=== PATIENT | female | born 1950 | race Caucasian/White ===

== ENCOUNTER 2018-02-11 05:55 | Inpatient (IN) ==
[2018-02-11] MEDS ORDERED: ASPIRIN 325 MG TABLET PO STA (06:24)
[2018-02-11 07:01] LABS: Basophils % 0.5 % (0.0-0.8); Eosinophils # 0.1 10*3/uL (0.0-0.87); Eosinophils % 1.7 % (0.00-10.9); Hematocrit 43.1 VOL% (35.7-47.0); Hemoglobin 14.7 GM/DL (12.0-16.0); Immature Granulocytes % 0.3 %; Immature Granulocytes Absolute 0.02 #; Lymphocytes # 2.5 10*3/uL (1.4-4.0); Lymphocytes % 33.5 % (21.3-54.2); Mean Corpuscular HGB Conc 34.1 GM/DL (32-36); Mean Corpuscular Hemoglobin 32 PG (27-34); Mean Corpuscular Volume 93.3 FL (87-102); Mean Platelet Volume 10.7 FL (9.6-12.0); Monocytes # 0.6 10*3/uL (0.11-0.8); Monocytes % 7.3 % (1.7-12.7); Neutrophils # 4.3 10*3/uL (1.4-7.4); Neutrophils % 56.7 % (38.7-73.9); Platelet Count 142 T/CUMM (130-400); Red Blood Count 4.62 MC/CUMM (3.8-5.5); Red Cell Distribution Width 12.6 % (9.3-17.3); White Blood Count 7.6 T/CUMM (4-12)
[2018-02-11 07:20] LABS: Hypochromasia 1+
[2018-02-11 07:30] LABS: Albumin 3.8 G/DL (3.4-5.0); Bilirubin,Total 0.4 MG/DL (0.2-1.0); Calcium 8.9 MG/DL (8.5-10.1); Osmolality,Calculated 283.3 MOS/KG (273-304); Potassium 3.6 MMOL/L (3.5-5.1); Total Protein 7.4 G/DL (6.4-8.3)
[2018-02-11] MEDS ORDERED: GLUCAGON 1 MG VIAL IM PRN (10:20)
[2018-02-11] MEDS ORDERED: DEXTROSE 50% 25 GM/50 ML VIAL IV PRN (10:20)
[2018-02-11] MEDS ORDERED: ACETAMINOPHEN 325 MG TABLET PO PRN (10:20)
[2018-02-11] MEDS ORDERED: ONDANSETRON 4 MG/2 ML VIAL IV PRN (10:20)
[2018-02-11 10:41] LABS: Risk Ratio 3.12; VLDL CHOLESTEROL 38.4 MG/DL
[2018-02-11] MEDS: INSULIN REGULAR 100 UNIT/ML SUBCUT SCH ×3 (12:12→21:08)
[2018-02-12] MEDS ORDERED: GEMFIBROZIL 600 MG TABLET PO SCH (07:30)
[2018-02-12] MEDS ORDERED: ATORVASTATIN 10 MG TABLET PO SCH (09:00)
[2018-02-12] MEDS ORDERED: BISOPROLOL/HCTZ 5-6.25 MG TABLET PO SCH (09:00)
[2018-02-12] MEDS ORDERED: MELOXICAM 7.5 MG TABLET PO SCH (09:00)
[2018-02-12] MEDS ORDERED: ESTRADIOL 1 MG TABLET PO SCH (09:00)
[2018-02-12] MEDS ORDERED: metFORMIN 500 MG TABLET PO SCH (09:00)
[2018-02-12] MEDS ORDERED: PANTOPRAZOLE 40 MG TABLET PO SCH (09:00)
[2018-02-12] MEDS: INSULIN REGULAR 100 UNIT/ML SUBCUT SCH ×2 (09:43→12:45)
[2018-02-12 11:19] VITALS: BP 138/72
== END 2018-02-12 15:22 | disposition home or self-care (01) | DRG 392 ==
LOC: N.ED 05:55 → N.EDINP 09:15 → N.TELEN 10:23
PROVIDERS: ADMIT Internal Medicine; ATTEND Internal Medicine

== ENCOUNTER 2022-06-08 08:59 | Inpatient (IN) ==
[2022-06-08 09:58] LABS: Basophils # 0.1 10*3/uL (0.0-0.2); Basophils % 0.9 % (0.0-0.8); Eosinophils # 0.1 10*3/uL (0.0-0.87); Eosinophils % 1.5 % (0.00-10.9); Hematocrit 38.9 VOL% (35.7-47.0); Immature Granulocytes % 0.4 %; Immature Granulocytes Absolute 0.03 #; Lymphocytes # 1.9 10*3/uL (1.4-4.0); Lymphocytes % 22.5 % (21.3-54.2); Mean Corpuscular HGB Conc 33.4 GM/DL (32-36); Mean Corpuscular Volume 94.2 FL (87-102); Mean Platelet Volume 9.2 FL (9.6-12.0); Monocytes # 0.5 10*3/uL (0.11-0.8); Monocytes % 6.3 % (1.7-12.7); Neutrophils % 68.4 % (38.7-73.9); Platelet Count 244 T/CUMM (130-400); Red Blood Count 4.13 MC/CUMM (3.8-5.5); Red Cell Distribution Width 14.4 % (9.3-17.3); White Blood Count 8.5 T/CUMM (4-12)
[2022-06-08 10:09] LABS: INR 0.9; PT Patient Result 10.3 SECS (10.1-12.1)
[2022-06-08 10:10] LABS: Mucus,Urine Occasional /LPF (Occasional); RBC,Urine 14 /HPF (0-4); Squamous Epithelial Cell,Urine Many /HPF (0-10)
[2022-06-08 10:11] LABS: Bilirubin,Urine Negative (Negative); Blood, Urine Moderate mg/dL (Negative); Glucose,Urine (UA) 100 mg/dL (Negative); Ketones,Urine Negative (Negative); Nitrite,Urine Negative (Negative); Protein,Urine >=300 mg/dL (Negative); Urine Appearance Slightly Cloudy (Clear); Urine Color Yellow (Yellow); Urine Specific Gravity > 1.030 (1.001-1.035); Urine Urobilinogen 0.2 eU/dL (<2.0); Urine pH 5.5 (4.5-8.0)
[2022-06-08 10:15] LABS: Alanine Aminotransferase 16 U/L (13-56); Albumin 1.5 G/DL (3.4-5.0); Alkaline Phosphatase 83 U/L (45-117); Aspartate Amino Transferase 30 U/L (0-37); Bilirubin,Total < 0.39 MG/DL (0.20-1.00); Blood Urea Nitrogen 23 MG/DL (7-18); Calcium 8.4 MG/DL (8.5-10.1); Carbon Dioxide 23 MMOL/L (21-32); Chloride 115 MMOL/L (98-107); Glucose 123 MG/DL (74-106); Osmolality,Calculated 294.6 MOS/KG (273-304); Potassium 3.5 MMOL/L (3.5-5.1); Sodium 146 MMOL/L (136-145); Total Protein 4.4 G/DL (6.4-8.2)
[2022-06-08] MEDS ORDERED: FUROSEMIDE 40 MG/4 ML VIAL IV STA (12:08)
[2022-06-08] MEDS: HEPARIN DRIP 25,000 UNITS/500 ML PREMIX IV SCH (12:55)
[2022-06-08] MEDS ORDERED: ONDANSETRON 4 MG/2 ML VIAL IV PRN (13:23)
[2022-06-08] MEDS ORDERED: DEXTROSE 10% 250 ML BAG IV PRN (13:23)
[2022-06-08] MEDS ORDERED: GLUCAGON 1 MG VIAL IM PRN (13:23)
[2022-06-08] MEDS: INSULIN REGULAR 100 UNIT/ML SUBCUT SCH ×2 (15:36→20:00)
[2022-06-08] MEDS: amLODIPine 10 MG TABLET PO SCH (15:36)
[2022-06-08] MEDS: gemfibroziL 600 MG TABLET PO SCH (15:47)
[2022-06-08 16:33] LABS: Hepatitis B Core IgM Quant < 0.05 Index; Hepatitis B Surface Ag Quant 0.16 Index; Hepatitis B Surface Ag Result Non-Reactive (NonReactive); Hepatitis C Virus Ab Quant < 0.02 Index; Hepatitis C Virus Ab Result Non-Reactive (NonReactive)
[2022-06-08] MEDS: ATORVASTATIN 10 MG TABLET PO SCH (20:33)
[2022-06-08] MEDS: guaiFENesin/DM ER 600-30 MG TABLET PO SCH (20:33)
[2022-06-08] MEDS ORDERED: ENOXAPARIN 40 MG/0.4 ML SYRINGE SUBCUT SCH (21:00)
[2022-06-09 01:51] LABS: Basophils # 0.1 10*3/uL (0.0-0.2); Basophils % 0.7 % (0.0-0.8); Eosinophils # 0.2 10*3/uL (0.0-0.87); Eosinophils % 2.1 % (0.00-10.9); Hematocrit 30.5 VOL% (35.7-47.0); Hemoglobin 10.4 GM/DL (12.0-16.0); Immature Granulocytes % 0.3 %; Immature Granulocytes Absolute 0.02 #; Lymphocytes % 42.2 % (21.3-54.2); Mean Corpuscular HGB Conc 34.1 GM/DL (32-36); Mean Corpuscular Volume 93.8 FL (87-102); Mean Platelet Volume 9.6 FL (9.6-12.0); Monocytes # 0.6 10*3/uL (0.11-0.8); Monocytes % 8.3 % (1.7-12.7); Neutrophils % 46.4 % (38.7-73.9); Platelet Count 211 T/CUMM (130-400); Red Blood Count 3.25 MC/CUMM (3.8-5.5); Red Cell Distribution Width 14.4 % (9.3-17.3); White Blood Count 7.1 T/CUMM (4-12)
[2022-06-09 02:14] LABS: Alanine Aminotransferase 14 U/L (13-56); Albumin 1.2 G/DL (3.4-5.0); Alkaline Phosphatase 59 U/L (45-117); Aspartate Amino Transferase 24 U/L (0-37); Bilirubin,Total < 0.39 MG/DL (0.20-1.00); Blood Urea Nitrogen 25 MG/DL (7-18); Calcium 7.7 MG/DL (8.5-10.1); Carbon Dioxide 23 MMOL/L (21-32); Chloride 114 MMOL/L (98-107); Glucose 94 MG/DL (74-106); Osmolality,Calculated 289.8 MOS/KG (273-304); Potassium 3.3 MMOL/L (3.5-5.1); Sodium 144 MMOL/L (136-145)
[2022-06-09 02:16] LABS: Uric Acid 5.5 MG/DL (2.6-6.0)
[2022-06-09 02:23] LABS: Risk Ratio 3.95; Thyroid Stimulating Hormone 6.59 uIU/ml (0.358-3.74); VLDL Cholesterol 38.6 MG/DL
[2022-06-09 02:38] LABS: Immunoglobulin A 219 MG/DL (70-400); Immunoglobulin G 165 MG/DL (700-1600); Immunoglobulin M 28 MG/DL (40-230)
[2022-06-09] MEDS: INSULIN REGULAR 100 UNIT/ML SUBCUT SCH ×4 (08:05→22:11)
[2022-06-09] MEDS ORDERED: ESTRADIOL 1 MG TABLET PO SCH (09:00)
[2022-06-09] MEDS ORDERED: DIAZEPAM 5 MG TABLET PO ONE (09:50)
[2022-06-09] MEDS: FUROSEMIDE 40 MG/4 ML VIAL IV SCH ×2 (10:24→16:31)
[2022-06-09] MEDS: SODIUM CHLORIDE 0.45% 1,000 ML IV SCH (12:08)
[2022-06-09 13:51] LABS: Kappa Free Light Chain 4.25 mg/dL; Lambda Free Light Chain 2.87 mg/dL
[2022-06-09] MEDS: amLODIPine 10 MG TABLET PO SCH (13:58)
[2022-06-09] MEDS: PANTOPRAZOLE 40 MG TABLET PO SCH (13:58)
[2022-06-09] MEDS: gemfibroziL 600 MG TABLET PO SCH ×2 (13:58→16:31)
[2022-06-09] MEDS: LEVOTHYROXINE 25 MCG TABLET PO SCH (13:58)
[2022-06-09] MEDS: guaiFENesin/DM ER 600-30 MG TABLET PO SCH ×2 (13:58→22:12)
[2022-06-09] MEDS: BISOPROLOL/HCTZ 5-6.25 MG TABLET PO SCH (13:59)
[2022-06-09] MEDS: HEPARIN DRIP 25,000 UNITS/500 ML PREMIX IV SCH ×2 (14:13→16:09)
[2022-06-09] MEDS: POTASSIUM BICARB EFFERVESCENT 20 MEQ TAB.EFF PO SCH (16:38)
[2022-06-09 19:49] LABS: Total Protein 24 Hr Ur Result 1365 MG/24HR (0-149.1); Total Volume,Urine 250 ML (400-2000)
[2022-06-09 19:52] LABS: Protein/Creatinine Ratio,Urine 4.9 RATIO
[2022-06-09 22:09] LABS: PT Patient Result 10.6 SECS (10.1-12.1); Partial Thromboplastin Time 47.8 SECS (23.7-32.9)
[2022-06-09] MEDS: ATORVASTATIN 10 MG TABLET PO SCH (22:12)
[2022-06-10 03:12] LABS: Basophils % 0.6 % (0.0-0.8); Eosinophils # 0.2 10*3/uL (0.0-0.87); Eosinophils % 3.4 % (0.00-10.9); Hematocrit 28.8 VOL% (35.7-47.0); Hemoglobin 9.6 GM/DL (12.0-16.0); Immature Granulocytes % 0.2 %; Immature Granulocytes Absolute 0.01 #; Lymphocytes # 3.3 10*3/uL (1.4-4.0); Lymphocytes % 50.2 % (21.3-54.2); Mean Corpuscular HGB Conc 33.3 GM/DL (32-36); Mean Corpuscular Volume 93.5 FL (87-102); Mean Platelet Volume 9.3 FL (9.6-12.0); Monocytes # 0.6 10*3/uL (0.11-0.8); Monocytes % 9.2 % (1.7-12.7); Neutrophils % 36.4 % (38.7-73.9); Platelet Count 211 T/CUMM (130-400); Red Blood Count 3.08 MC/CUMM (3.8-5.5); Red Cell Distribution Width 14.4 % (9.3-17.3); White Blood Count 6.5 T/CUMM (4-12)
[2022-06-10 03:26] LABS: PT Patient Result 10.7 SECS (10.1-12.1); Partial Thromboplastin Time 82.9 SECS (23.7-32.9)
[2022-06-10 03:32] LABS: Alanine Aminotransferase 11 U/L (13-56); Albumin 1.1 G/DL (3.4-5.0); Alkaline Phosphatase 57 U/L (45-117); Aspartate Amino Transferase 22 U/L (0-37); Bilirubin,Total < 0.39 MG/DL (0.20-1.00); Blood Urea Nitrogen 22 MG/DL (7-18); Calcium 7.7 MG/DL (8.5-10.1); Carbon Dioxide 23 MMOL/L (21-32); Chloride 113 MMOL/L (98-107); Glucose 105 MG/DL (74-106); Osmolality,Calculated 283.3 MOS/KG (273-304); Potassium 3.1 MMOL/L (3.5-5.1); Sodium 141 MMOL/L (136-145); Total Protein 3.7 G/DL (6.4-8.2)
[2022-06-10 03:44] LABS: Eosinophils 4 % (0-10); Lymphocytes 52 % (20-55); Total Cells Counted 100
[2022-06-10 03:48] LABS: Platelet Estimate Normal
[2022-06-10 03:50] LABS: Atypical Lymphocytes Few; Smudge Cells Few
[2022-06-10] MEDS: LEVOTHYROXINE 25 MCG TABLET PO SCH (06:32)
[2022-06-10] MEDS: gemfibroziL 600 MG TABLET PO SCH ×2 (09:16→16:34)
[2022-06-10] MEDS: guaiFENesin/DM ER 600-30 MG TABLET PO SCH ×2 (09:16→21:32)
[2022-06-10] MEDS: amLODIPine 10 MG TABLET PO SCH (09:17)
[2022-06-10] MEDS: POTASSIUM BICARB EFFERVESCENT 20 MEQ TAB.EFF PO SCH (09:17)
[2022-06-10] MEDS: PANTOPRAZOLE 40 MG TABLET PO SCH (09:17)
[2022-06-10] MEDS: BISOPROLOL/HCTZ 5-6.25 MG TABLET PO SCH (09:21)
[2022-06-10 09:49] LABS: PT Patient Result 10.8 SECS (10.1-12.1)
[2022-06-10 09:54] LABS: Partial Thromboplastin Time 102.4 SECS (23.7-32.9)
[2022-06-10] MEDS: POTASSIUM CHLORIDE 20 MEQ TABLET PO SCH ×2 (10:18→21:32)
[2022-06-10] MEDS: FUROSEMIDE 40 MG/4 ML VIAL IV SCH ×2 (10:20→16:34)
[2022-06-10] MEDS: INSULIN REGULAR 100 UNIT/ML SUBCUT SCH (13:39)
[2022-06-10 13:41] LABS: Antinuclear Ab, S 0.7 U
[2022-06-10] MEDS: SODIUM CHLORIDE 0.45% 1,000 ML IV SCH (14:42)
[2022-06-10] MEDS: HEPARIN DRIP 25,000 UNITS/500 ML PREMIX IV SCH (15:48)
[2022-06-10] MEDS: ATORVASTATIN 10 MG TABLET PO SCH (21:32)
[2022-06-10] MEDS: APIXABAN 5 MG TABLET PO SCH (21:33)
[2022-06-10] MEDS: diphenhydrAMINE CAP 25 MG CAPSULE PO PRN (21:33)
[2022-06-11 04:58] LABS: Basophils # 0.1 10*3/uL (0.0-0.2); Basophils % 1.1 % (0.0-0.8); Eosinophils # 0.2 10*3/uL (0.0-0.87); Eosinophils % 3.4 % (0.00-10.9); Hematocrit 29.1 VOL% (35.7-47.0); Hemoglobin 9.6 GM/DL (12.0-16.0); Immature Granulocytes % 0.2 %; Immature Granulocytes Absolute 0.01 #; Lymphocytes # 2.4 10*3/uL (1.4-4.0); Lymphocytes % 45.2 % (21.3-54.2); Mean Corpuscular Volume 94.2 FL (87-102); Mean Platelet Volume 9.3 FL (9.6-12.0); Monocytes # 0.6 10*3/uL (0.11-0.8); Monocytes % 11.2 % (1.7-12.7); Neutrophils % 38.9 % (38.7-73.9); Platelet Count 239 T/CUMM (130-400); Red Blood Count 3.09 MC/CUMM (3.8-5.5); Red Cell Distribution Width 14.4 % (9.3-17.3); White Blood Count 5.3 T/CUMM (4-12)
[2022-06-11 05:18] LABS: Alanine Aminotransferase 12 U/L (13-56); Albumin 1.1 G/DL (3.4-5.0); Alkaline Phosphatase 55 U/L (45-117); Aspartate Amino Transferase 24 U/L (0-37); Bilirubin,Total < 0.39 MG/DL (0.20-1.00); Blood Urea Nitrogen 18 MG/DL (7-18); Calcium 7.7 MG/DL (8.5-10.1); Carbon Dioxide 22 MMOL/L (21-32); Chloride 113 MMOL/L (98-107); Glucose 86 MG/DL (74-106); Osmolality,Calculated 281.3 MOS/KG (273-304); Potassium 3.5 MMOL/L (3.5-5.1); Sodium 141 MMOL/L (136-145); Total Protein 3.7 G/DL (6.4-8.2)
[2022-06-11] MEDS: LEVOTHYROXINE 25 MCG TABLET PO SCH (05:43)
[2022-06-11] MEDS: INSULIN REGULAR 100 UNIT/ML SUBCUT SCH ×6 (05:44→20:16)
[2022-06-11] MEDS: amLODIPine 10 MG TABLET PO SCH (08:58)
[2022-06-11] MEDS: APIXABAN 5 MG TABLET PO SCH ×2 (08:59→21:17)
[2022-06-11] MEDS: gemfibroziL 600 MG TABLET PO SCH ×2 (08:59→16:46)
[2022-06-11] MEDS: POTASSIUM CHLORIDE 20 MEQ TABLET PO SCH ×2 (08:59→21:18)
[2022-06-11] MEDS: guaiFENesin/DM ER 600-30 MG TABLET PO SCH ×2 (08:59→21:18)
[2022-06-11] MEDS: PANTOPRAZOLE 40 MG TABLET PO SCH (09:11)
[2022-06-11] MEDS: BISOPROLOL/HCTZ 5-6.25 MG TABLET PO SCH (09:11)
[2022-06-11] MEDS: POTASSIUM BICARB EFFERVESCENT 20 MEQ TAB.EFF PO SCH (09:43)
[2022-06-11] MEDS: FUROSEMIDE 40 MG/4 ML VIAL IV SCH (10:21)
[2022-06-11] MEDS: ATORVASTATIN 10 MG TABLET PO SCH (21:18)
[2022-06-12] MEDS: LEVOTHYROXINE 25 MCG TABLET PO SCH (05:34)
[2022-06-12 06:33] LABS: Immunoglobulin A (Chem) 219 MG/DL (70-400); Immunoglobulin G (Chem) 165 MG/DL (700-1600); Immunoglobulin M (Chem) 28 MG/DL (40-230)
[2022-06-12 07:11] LABS: Basophils % 0.7 % (0.0-0.8); Eosinophils # 0.2 10*3/uL (0.0-0.87); Eosinophils % 4.1 % (0.00-10.9); Hemoglobin 10.2 GM/DL (12.0-16.0); Immature Granulocytes % 0.5 %; Immature Granulocytes Absolute 0.02 #; Lymphocytes # 1.3 10*3/uL (1.4-4.0); Lymphocytes % 29.4 % (21.3-54.2); Mean Corpuscular HGB Conc 32.9 GM/DL (32-36); Mean Corpuscular Volume 95.1 FL (87-102); Mean Platelet Volume 9.8 FL (9.6-12.0); Monocytes # 0.5 10*3/uL (0.11-0.8); Monocytes % 12.3 % (1.7-12.7); Platelet Count 289 T/CUMM (130-400); Red Blood Count 3.26 MC/CUMM (3.8-5.5); Red Cell Distribution Width 14.3 % (9.3-17.3); White Blood Count 4.4 T/CUMM (4-12)
[2022-06-12 07:29] LABS: Alanine Aminotransferase 14 U/L (13-56); Albumin 1.1 G/DL (3.4-5.0); Alkaline Phosphatase 69 U/L (45-117); Aspartate Amino Transferase 24 U/L (0-37); Bilirubin,Total < 0.39 MG/DL (0.20-1.00); Blood Urea Nitrogen 18 MG/DL (7-18); Calcium 8.1 MG/DL (8.5-10.1); Carbon Dioxide 24 MMOL/L (21-32); Chloride 113 MMOL/L (98-107); Glucose 87 MG/DL (74-106); Osmolality,Calculated 283.1 MOS/KG (273-304); Potassium 3.7 MMOL/L (3.5-5.1); Sodium 142 MMOL/L (136-145); Total Protein 3.9 G/DL (6.4-8.2)
[2022-06-12] MEDS: INSULIN REGULAR 100 UNIT/ML SUBCUT SCH ×4 (07:50→20:22)
[2022-06-12] MEDS: FUROSEMIDE 40 MG/4 ML VIAL IV SCH (08:27)
[2022-06-12] MEDS: APIXABAN 5 MG TABLET PO SCH ×2 (08:28→20:32)
[2022-06-12] MEDS: gemfibroziL 600 MG TABLET PO SCH ×2 (08:28→15:59)
[2022-06-12] MEDS: PANTOPRAZOLE 40 MG TABLET PO SCH (08:28)
[2022-06-12] MEDS: amLODIPine 10 MG TABLET PO SCH (08:28)
[2022-06-12] MEDS: POTASSIUM CHLORIDE 20 MEQ TABLET PO SCH (08:28)
[2022-06-12] MEDS: BISOPROLOL/HCTZ 5-6.25 MG TABLET PO SCH (08:29)
[2022-06-12] MEDS: guaiFENesin/DM ER 600-30 MG TABLET PO SCH ×2 (08:33→20:32)
[2022-06-12 08:55] LABS: Albumin (SPE) 1.6 G/DL (3.2-5.3); Albumin (SPE) Rel % 40.3 %; Alpha 1 (SPE) 0.2 G/DL (0.1-0.4); Alpha 1 (SPE) Rel % 5.6 %; Alpha 2 (SPE) 1.1 G/DL (0.4-1.0); Alpha 2 (SPE) Rel % 28.2 %; Beta (SPE) 0.7 G/DL (0.5-1.1); Beta (SPE) Rel % 16.9 %; Gamma (SPE) 0.4 G/DL (0.7-1.7)
[2022-06-12] MEDS ORDERED: ERGOCALCIFEROL 50,000 UNIT CAPSULE PO SCH (09:00)
[2022-06-12 11:11] LABS: Kappa Free Light Chain 3.96 mg/dL; Lambda Free Light Chain 2.57 mg/dL
[2022-06-12 12:51] LABS: Myeloperoxidase Antibody < 0.2 U
[2022-06-12 19:11] LABS: Antinuclear Ab, S 0.6 U
[2022-06-12] MEDS: ATORVASTATIN 10 MG TABLET PO SCH (20:32)
[2022-06-13 04:20] LABS: Eosinophils % 1.3 % (0.00-10.9); Hematocrit 30.3 VOL% (35.7-47.0); Hemoglobin 9.9 GM/DL (12.0-16.0); Immature Granulocytes % 0.3 %; Immature Granulocytes Absolute 0.01 #; Lymphocytes # 0.5 10*3/uL (1.4-4.0); Lymphocytes % 17.8 % (21.3-54.2); Mean Corpuscular HGB Conc 32.7 GM/DL (32-36); Mean Corpuscular Volume 94.7 FL (87-102); Mean Platelet Volume 9.5 FL (9.6-12.0); Monocytes # 0.5 10*3/uL (0.11-0.8); Monocytes % 15.8 % (1.7-12.7); Neutrophils % 63.8 % (38.7-73.9); Platelet Count 262 T/CUMM (130-400); Red Cell Distribution Width 14.2 % (9.3-17.3)
[2022-06-13 04:50] LABS: Alanine Aminotransferase 19 U/L (13-56); Albumin 1.2 G/DL (3.4-5.0); Alkaline Phosphatase 70 U/L (45-117); Aspartate Amino Transferase 31 U/L (0-37); Bilirubin,Total < 0.39 MG/DL (0.20-1.00); Blood Urea Nitrogen 19 MG/DL (7-18); Calcium 8.1 MG/DL (8.5-10.1); Carbon Dioxide 22 MMOL/L (21-32); Chloride 115 MMOL/L (98-107); Glucose 85 MG/DL (74-106); Osmolality,Calculated 286.8 MOS/KG (273-304); Sodium 144 MMOL/L (136-145); Total Protein 3.9 G/DL (6.4-8.2)
[2022-06-13 04:57] LABS: Band Neutrophils 1 % (0-10); Eosinophils 2 % (0-10); Lymphocytes 17 % (20-55); Total Cells Counted 100
[2022-06-13 04:58] LABS: Platelet Estimate Normal
[2022-06-13] MEDS: LEVOTHYROXINE 25 MCG TABLET PO SCH (06:42)
[2022-06-13] MEDS: gemfibroziL 600 MG TABLET PO SCH ×2 (07:04→15:35)
[2022-06-13] MEDS: INSULIN REGULAR 100 UNIT/ML SUBCUT SCH ×4 (07:42→20:02)
[2022-06-13] MEDS: FUROSEMIDE 40 MG/4 ML VIAL IV SCH (08:54)
[2022-06-13] MEDS: amLODIPine 10 MG TABLET PO SCH (08:55)
[2022-06-13] MEDS: APIXABAN 5 MG TABLET PO SCH ×2 (08:55→20:02)
[2022-06-13] MEDS: PANTOPRAZOLE 40 MG TABLET PO SCH (08:55)
[2022-06-13] MEDS: guaiFENesin/DM ER 600-30 MG TABLET PO SCH ×2 (08:55→20:02)
[2022-06-13] MEDS: BISOPROLOL/HCTZ 5-6.25 MG TABLET PO SCH (08:56)
[2022-06-13] MEDS: ATORVASTATIN 10 MG TABLET PO SCH (20:02)
[2022-06-14 05:54] LABS: Basophils % 0.8 % (0.0-0.8); Eosinophils % 0.6 % (0.00-10.9); Hematocrit 34.1 VOL% (35.7-47.0); Hemoglobin 11.1 GM/DL (12.0-16.0); Immature Granulocytes % 0.3 %; Immature Granulocytes Absolute 0.01 #; Lymphocytes # 0.6 10*3/uL (1.4-4.0); Lymphocytes % 17.4 % (21.3-54.2); Mean Corpuscular HGB Conc 32.6 GM/DL (32-36); Mean Corpuscular Volume 94.5 FL (87-102); Mean Platelet Volume 9.6 FL (9.6-12.0); Monocytes # 0.5 10*3/uL (0.11-0.8); Monocytes % 12.9 % (1.7-12.7); Platelet Count 261 T/CUMM (130-400); Red Blood Count 3.61 MC/CUMM (3.8-5.5); Red Cell Distribution Width 14.3 % (9.3-17.3); White Blood Count 3.6 T/CUMM (4-12)
[2022-06-14 06:07] LABS: Calcium 7.7 MG/DL (8.5-10.1); Osmolality,Calculated 282.3 MOS/KG (273-304)
[2022-06-14] MEDS: LEVOTHYROXINE 25 MCG TABLET PO SCH (06:11)
[2022-06-14] MEDS: gemfibroziL 600 MG TABLET PO SCH ×2 (07:41→16:35)
[2022-06-14] MEDS: INSULIN REGULAR 100 UNIT/ML SUBCUT SCH ×4 (07:45→22:01)
[2022-06-14] MEDS: amLODIPine 10 MG TABLET PO SCH (08:41)
[2022-06-14] MEDS: PANTOPRAZOLE 40 MG TABLET PO SCH (08:41)
[2022-06-14] MEDS: guaiFENesin/DM ER 600-30 MG TABLET PO SCH ×2 (08:41→21:07)
[2022-06-14] MEDS: APIXABAN 5 MG TABLET PO SCH (08:41)
[2022-06-14] MEDS: BISOPROLOL/HCTZ 5-6.25 MG TABLET PO SCH (08:42)
[2022-06-14] MEDS ORDERED: FUROSEMIDE 40 MG TABLET PO SCH (09:00)
[2022-06-14] MEDS ORDERED: ACETAMINOPHEN 325 MG TABLET PO PRN (09:01)
[2022-06-14] MEDS: cefTRIAXone 1,000 MG in SODIUM CHLORIDE 0.9% 100 ML IV SCH (09:19)
[2022-06-14 14:59] LABS: Bacteria,Urine Occasional /HPF (Few); Glucose,Urine (UA) Negative (Negative); Hyaline Casts,Urine 3 /LPF (0-3); Mucus,Urine Occasional /LPF (Occasional); Protein,Urine >=300 mg/dL (Negative); RBC,Urine 47 /HPF (0-4); Squamous Epithelial Cell,Urine Few /HPF (0-10); Urine Appearance Slightly Cloudy (Clear); Urine Color Yellow (Yellow); Urine Specific Gravity >= 1.030 (1.001-1.035); Urine pH 5.5 (4.5-8.0)
[2022-06-14 15:00] LABS: Bilirubin,Urine Negative (Negative); Blood, Urine Moderate mg/dL (Negative); Ketones,Urine Trace mg/dL (Negative); Nitrite,Urine Negative (Negative); Urine Urobilinogen 0.2 eU/dL (<2.0)
[2022-06-14] MEDS: HEPARIN DRIP 25,000 UNITS/500 ML PREMIX IV SCH (18:09)
[2022-06-14] MEDS: ATORVASTATIN 10 MG TABLET PO SCH (21:07)
[2022-06-15 01:26] LABS: Basophils % 0.6 % (0.0-0.8); Eosinophils % 1.3 % (0.00-10.9); Hematocrit 29.3 VOL% (35.7-47.0); Hemoglobin 9.7 GM/DL (12.0-16.0); Immature Granulocytes % 0.3 %; Immature Granulocytes Absolute 0.01 #; Lymphocytes # 1.1 10*3/uL (1.4-4.0); Lymphocytes % 36.5 % (21.3-54.2); Mean Corpuscular HGB Conc 33.1 GM/DL (32-36); Mean Corpuscular Volume 94.8 FL (87-102); Mean Platelet Volume 9.8 FL (9.6-12.0); Monocytes # 0.5 10*3/uL (0.11-0.8); Monocytes % 14.4 % (1.7-12.7); Neutrophils % 46.9 % (38.7-73.9); Platelet Count 244 T/CUMM (130-400); Red Blood Count 3.09 MC/CUMM (3.8-5.5); Red Cell Distribution Width 14.3 % (9.3-17.3); White Blood Count 3.1 T/CUMM (4-12)
[2022-06-15 01:44] LABS: Calcium 7.3 MG/DL (8.5-10.1); Osmolality,Calculated 279.5 MOS/KG (273-304); Potassium 3.6 MMOL/L (3.5-5.1)
[2022-06-15] MEDS: LEVOTHYROXINE 25 MCG TABLET PO SCH (06:13)
[2022-06-15 09:19] LABS: Albumin (UPER) Rel% 75.9 %; Alpha 1 (UPER) 77.4 MG/DL; Alpha 1 (UPER) Rel% 3.1 %; Alpha 2 (UPER) 252.3 MG/DL; Alpha 2 (UPER) Rel % 10.1 %; Beta (UPER) 189.8 MG/DL; Beta (UPER) Rel % 7.6 %; Gamma (UPER) 82.4 MG/DL; Gamma (UPER) Rel % 3.3 %
[2022-06-15] MEDS: INSULIN REGULAR 100 UNIT/ML SUBCUT SCH ×4 (10:23→20:01)
[2022-06-15] MEDS: cefTRIAXone 1,000 MG in SODIUM CHLORIDE 0.9% 100 ML IV SCH (10:24)
[2022-06-15] MEDS: gemfibroziL 600 MG TABLET PO SCH ×2 (10:25→17:55)
[2022-06-15] MEDS: amLODIPine 10 MG TABLET PO SCH (10:25)
[2022-06-15] MEDS: PANTOPRAZOLE 40 MG TABLET PO SCH (10:26)
[2022-06-15] MEDS: guaiFENesin/DM ER 600-30 MG TABLET PO SCH ×2 (10:26→21:05)
[2022-06-15] MEDS: BISOPROLOL/HCTZ 5-6.25 MG TABLET PO SCH (10:26)
[2022-06-15] MEDS: HEPARIN DRIP 25,000 UNITS/500 ML PREMIX IV SCH (20:09)
[2022-06-15] MEDS: ATORVASTATIN 10 MG TABLET PO SCH (21:06)
[2022-06-15] MEDS: diphenhydrAMINE CAP 25 MG CAPSULE PO PRN (21:06)
[2022-06-16] MEDS: HEPARIN DRIP 25,000 UNITS/500 ML PREMIX IV SCH (03:51)
[2022-06-16 05:55] LABS: Basophils % 0.5 % (0.0-0.8); Eosinophils % 1.1 % (0.00-10.9); Hematocrit 33.9 VOL% (35.7-47.0); Immature Granulocytes % 0.3 %; Immature Granulocytes Absolute 0.01 #; Lymphocytes # 1.4 10*3/uL (1.4-4.0); Lymphocytes % 38.6 % (21.3-54.2); Mean Corpuscular HGB Conc 32.4 GM/DL (32-36); Mean Corpuscular Volume 94.7 FL (87-102); Mean Platelet Volume 10.4 FL (9.6-12.0); Monocytes # 0.4 10*3/uL (0.11-0.8); Monocytes % 11.8 % (1.7-12.7); Neutrophils % 47.7 % (38.7-73.9); Platelet Count 274 T/CUMM (130-400); Red Blood Count 3.58 MC/CUMM (3.8-5.5); Red Cell Distribution Width 14.1 % (9.3-17.3); White Blood Count 3.7 T/CUMM (4-12)
[2022-06-16 06:17] LABS: Calcium 7.2 MG/DL (8.5-10.1); Osmolality,Calculated 278.5 MOS/KG (273-304); Potassium 3.5 MMOL/L (3.5-5.1)
[2022-06-16] MEDS: LEVOTHYROXINE 25 MCG TABLET PO SCH (06:24)
[2022-06-16 06:36] LABS: Platelet Estimate Adequate
[2022-06-16 06:37] LABS: Burr Cells Few
[2022-06-16] MEDS: gemfibroziL 600 MG TABLET PO SCH ×2 (07:05→15:41)
[2022-06-16] MEDS: INSULIN REGULAR 100 UNIT/ML SUBCUT SCH ×4 (08:11→20:36)
[2022-06-16] MEDS: cefTRIAXone 1,000 MG in SODIUM CHLORIDE 0.9% 100 ML IV SCH (08:34)
[2022-06-16] MEDS: amLODIPine 10 MG TABLET PO SCH (08:35)
[2022-06-16] MEDS: guaiFENesin/DM ER 600-30 MG TABLET PO SCH ×2 (08:35→20:37)
[2022-06-16] MEDS: PANTOPRAZOLE 40 MG TABLET PO SCH (08:35)
[2022-06-16] MEDS: BISOPROLOL/HCTZ 5-6.25 MG TABLET PO SCH (08:35)
[2022-06-16 10:51] LABS: Amylase,Pleural Fluid 13 U/L; LDH,Pleural Fluid 91 U/L; Total Protein,Pleural Fluid < 1.0 G/DL
[2022-06-16 11:05] LABS: Lymphocytes,Pleural Fluid 92 %; Monocytes,Pleural Fluid 8 %; RBC,Pleural Fluid 363 T/CUMM
[2022-06-16] MEDS: ATORVASTATIN 10 MG TABLET PO SCH (20:38)
[2022-06-17] MEDS: LEVOTHYROXINE 25 MCG TABLET PO SCH (05:43)
[2022-06-17 06:07] LABS: Basophils % 0.7 % (0.0-0.8); Eosinophils % 0.3 % (0.00-10.9); Hematocrit 30.6 VOL% (35.7-47.0); Hemoglobin 10.2 GM/DL (12.0-16.0); Lymphocytes # 1.2 10*3/uL (1.4-4.0); Lymphocytes % 41.7 % (21.3-54.2); Mean Corpuscular HGB Conc 33.3 GM/DL (32-36); Mean Corpuscular Volume 94.4 FL (87-102); Mean Platelet Volume 9.7 FL (9.6-12.0); Monocytes # 0.5 10*3/uL (0.11-0.8); Monocytes % 16.7 % (1.7-12.7); Neutrophils % 40.6 % (38.7-73.9); Platelet Count 241 T/CUMM (130-400); Red Blood Count 3.24 MC/CUMM (3.8-5.5); White Blood Count 2.9 T/CUMM (4-12)
[2022-06-17 06:26] LABS: Calcium 7.2 MG/DL (8.5-10.1); Osmolality,Calculated 285.1 MOS/KG (273-304); Potassium 3.5 MMOL/L (3.5-5.1)
[2022-06-17 07:14] LABS: Lymphocytes 27 % (20-55); Total Cells Counted 100
[2022-06-17 07:15] LABS: Platelet Estimate Adequate
[2022-06-17] MEDS: cefTRIAXone 1,000 MG in SODIUM CHLORIDE 0.9% 100 ML IV SCH (09:11)
[2022-06-17] MEDS: gemfibroziL 600 MG TABLET PO SCH (09:12)
[2022-06-17] MEDS: PANTOPRAZOLE 40 MG TABLET PO SCH (09:12)
[2022-06-17] MEDS: INSULIN REGULAR 100 UNIT/ML SUBCUT SCH ×2 (09:12→13:17)
[2022-06-17] MEDS: guaiFENesin/DM ER 600-30 MG TABLET PO SCH (09:12)
[2022-06-17] MEDS: amLODIPine 10 MG TABLET PO SCH (09:12)
[2022-06-17] MEDS: BISOPROLOL/HCTZ 5-6.25 MG TABLET PO SCH (09:13)
[2022-06-17 09:36] VITALS: BP 112/66
[2022-06-18 23:51] LABS: Fr Urinary Lambda Light Chain 39.21 mg/L (0.00-3.79); Free Urinary Kappa Light Chain 109.03 mg/L (0.00-32.90); IF FLC Collection Duration Random hr; IF FLC Collection Volume Random mL
[2022-06-20 13:16] LABS: CEA, Pleural Fluid < 0.5 ng/mL
== END 2022-06-17 12:07 | disposition home or self-care (01) | DRG 176 ==
LOC: N.ED 08:59 → N.EDINP 13:22 → SUATTDRO 13:22 → N.TELES 13:58
PROVIDERS: ADMIT Family Medicine; ATTEND Internal Medicine